=== PATIENT | male | born 1990 ===

== ENCOUNTER → 2018-04-02 | Outpatient (REF) | payer OTHER ==
[2018-04-02 13:21] LABS: SEMEN APPEARANCE OPAQUE (OPAQUE); SEMEN VISCOSITY LIQUID (LIQUID)
[2018-04-02 13:22] LABS: SEMEN pH 8.5 (7.0-8.0); WBC CONCENTRATION >1 M/ml (<=1 M/ml)
[2018-04-02 13:23] LABS: % NORMAL FORMS 5 % (>=4); IMMOTILITY 63 %; NON PROGRESSIVE MOTILITY (c) 14 %; PROGRESSIVE MOTILITY (a) 23 % (>=32); SPERM CONCENTRATION 20.6 M/ml (>=15.0); SPERM# 82.3 M/Ejac (>=39); TOTAL FUNCTIONAL 2.4 M/Ejac.; TOTAL MOTILITY 37 % (>=40); TOTAL PROGRESSIVE SPERM 19.1 M/Ejac.
== END ==
LOC: M LAB REF 13:04
DX: N46.8 Other male infertility (principal)
CPT/HCPCS: 89320